=== PATIENT | female | born 1980 | race Hispanic/Latino ===

== ENCOUNTER 2016-06-13 21:34 | Emergency (ER) | payer MEDICAID ==
[2016-06-14 04:53] VITALS: BP 118/87
[2016-06-14] MEDS ORDERED: NORCO 5/325 PO ONE (05:18)
--- NOTE | 2016-06-14 05:41 | Emergency Department Report ---
HPI - General Chief Complaint: Extremity Injury, Lower Time Seen by Provider: 06/14/16 05:15 - HPI HPI: Is a 36-year-old female presents to ED complaining of right ankle pain 1 day. Patient states yesterday she was walking around known and twisted her ankle. Patient states pain to lateral aspect of the ankle. Patient states swelling and pain to the right ankle. Patient denies fevers/chills/nausea//abdominal pain/chest pain/other problems ED Past Medical Hx - Past Medical History Hx Hypertension: No Hx Diabetes: No Hx Deep Vein Thrombosis: No Hx Renal Disease: No Hx Sickle Cell Disease: No Hx Seizures: No Hx Asthma: No Hx HIV: No Additional medical history: Vaginal delivery x 1. 4. States high risk due to placenta previa - Surgical History Additional Surgical History: x 3 - Social History Smoking Status: Current Every Day Smoker Substance Use Type: None - Medications Home Medications: Home Medications Medication Instructions Recorded Confirmed Last Taken Type Cyclobenzaprine [Flexeril] 10 mg PO TID PRN #20 tablet 06/14/16 Unknown Rx Ibuprofen [Motrin 800 MG tab] 800 mg PO Q8HR PRN #30 tablet 06/14/16 Unknown Rx ED Review of Systems ROS: Stated complaint: RT ANKLE PAIN/HIGH BP Other details as noted in HPI Constitutional: denies: chills, fever Eyes: denies: eye pain, eye discharge, vision change ENT: denies: ear pain, throat pain, dental pain, hearing loss, epistaxis, congestion Respiratory: denies: cough, shortness of breath, wheezing Cardiovascular: denies: chest pain, palpitations Endocrine: no symptoms reported Gastrointestinal: denies: abdominal pain, nausea, vomiting, diarrhea, constipation Genitourinary: denies: urgency, dysuria, discharge Musculoskeletal: arthralgia. denies: back pain, joint swelling Skin: denies: rash, lesions Neurological: denies: headache, weakness, paresthesias Psychiatric: denies: anxiety, depression Hematological/Lymphatic: denies: easy bleeding, easy bruising Physical Exam - Physical Exam Vital Signs: Vital Signs 06/13/16 06/14/16 22:30 04:52 Temperature 98.6 F 98.7 F Pulse Rate 100 H 82 Respiratory 18 20 Rate Blood Pressure 161/97 Blood Pressure 118/87 [Left] O2 Sat by Pulse 100 99 Oximetry Physical Exam: GENERAL: Alert and oriented x3, no apparent distress, Normal Gait, atraumatic. HEAD: Head is normocephalic and a-traumatic. EYES: Extra ocular muscles are intact. Pupils are equal, round, and reactive to light and accommodation. NECK: Supple. Non edematous, No carotid bruits. No lymphadenopathy or thyromegaly. No C-spine tenderness LUNGS: Symetrical with respiration, No wheezing, no rales or crackles, CTAB. HEART: S1, S2 present, regular rate and rhythm without murmur, no rubs, no gallops. ABDOMEN: No organomegaly was noted,Positive bowel sounds, soft, and non- distended. . Nontender to palpation on all Quadrants, NO CVA tenderness. EXTREMITIES/MUSCULOSKELETAL: No cyanosis, clubbing, rash, lesions or edema. Full ROM bilaterally. UE/LE Pulses 2+ bilaterally. LE and UE 5+ strength bilaterally, straight leg raise negative bilaterally. Right ankle tender to palpation the lateral aspect. NEUROLOGIC: No focal Deficit, Cranial nerves II through XII are grossly intact. No loss of sensation, PSYCHIATRIC: Mood is congruent with affect, denies suicidal or homicidal ideations. SKIN: Warm and dry, No lesions, No ulceration or induration present. ED Course Vital Signs 06/13/16 06/14/16 22:30 04:52 Temperature 98.6 F 98.7 F Pulse Rate 100 H 82 Respiratory 18 20 Rate Blood Pressure 161/97 Blood Pressure 118/87 [Left] O2 Sat by Pulse 100 99 Oximetry ED Medical Decision Making - Medical Decision Making 36-year-old male presents with ankle sprain ED course: She received 2 tablets of [place]. X-ray of the ankle shows no fracture no dislocation. Discussed findings patient. Discussed the patient take medication as prescribed Discussed this strained or sprained ankle. patient is in no acute respiratory distress. Discussed rice protocol Discussion patient to follow-up and follow instructions as given on discharge Vital signs are normal Critical care attestation.: If time is entered above; I have spent that time in minutes in the direct care of this critically ill patient, excluding procedure time. ED Disposition Clinical Impression: Ankle sprain Qualifiers: Encounter type: initial encounter Involved ligament of ankle: other ligament Laterality: right Qualified Code(s): S93.491A - Sprain of other ligament of right ankle, initial encounter Disposition: DISCHARGED TO HOME OR SELFCARE Is pt being admited?: No Does the pt Need Aspirin: No Condition: Stable Instructions: Ankle Sprain (ED), Arthralgia (ED), Osteoarthritis (ED), RICE Therapy (ED) Prescriptions: Cyclobenzaprine [Flexeril] 10 mg PO TID PRN #20 tablet PRN Reason: Muscle Spasm Ibuprofen [Motrin 800 MG tab] 800 mg PO Q8HR PRN #30 tablet PRN Reason: Pain Referrals: PRIMARY MD ANDREW [Primary Care Provider] - 3-5 Days ELISSA DOUGLAS MD [Referring] - 3-5 Days [facility]Outside] - 3-5 Days Forms: Work/School Release Form(ED), Accompanied Note Time of Disposition: 06:13
--- NOTE | 2016-06-14 05:45 | XRay Report ---
FINAL REPORT PROCEDURE: XR ANKLE 3 RT TECHNIQUE: RIGHT ankle radiographs, AP, lateral, and oblique views. CPT 39591 HISTORY: Right ankle injury,swelling and pain COMPARISON: No prior studies are available for comparison. FINDINGS: Fracture (s) and/or Dislocation(s): None. Alignment: Normal. Joint space(s): Normal. Soft tissues: Normal. Bone mineralization: Mild degenerative change noted. There is mild spurring at Achilles tendon insertion of the posterior calcaneus as well.. Foreign bodies: None. Calcaneal spurring: None. IMPRESSION: 1. There is no plain film evidence of fracture or dislocation. 2. Mild degenerative change noted.
== END 2016-06-14 06:55 | disposition home or self-care (01) ==
LOC: ED 21:34
DX: S93.491A Sprain of other ligament of right ankle, initial encounter (principal); F17.200 Nicotine dependence, unspecified, uncomplicated; X50.1XXA Overexertion from prolonged static or awkward postures, initial encounter; Y93.89 Activity, other specified; Y92.89 Other specified places as the place of occurrence of the external cause; Y99.8 Other external cause status
CPT/HCPCS: 81025